=== PATIENT | male | born 1970 | race Caucasian/White ===

== ENCOUNTER 2017-06-19 07:32 | Day surgery (SDC) | payer OTHER ==
[~2017-06-19] VITALS: Ht 188 cm; Wt 94.0 kg
[2017-06-19] VITALS (13 sets, daily range): BP systolic 11–119; BP diastolic 69–88; PULSE 61–73; TEMP 98.8
[2017-06-19 07:53] LABS: HEMATOCRIT 47.7 % (42.0-52.0); HEMOGLOBIN 15.9 g/dl (13.5-18.0); MEAN CELL VOLUME 88 fl (80.0-100.0); MEAN CORPUSCULAR HEMOGLOBIN 29 pg (27.0-31.0); MEAN CORPUSCULAR HGB CONC 33 g/dl (33.0-37.0); PLATELET COUNT 270 K/mm3 (130-400); RED BLOOD COUNT 5.45 M/mm3 (4.20-5.60); WHITE BLOOD COUNT 4.6 K/mm3 (4.8-10.8)
[2017-06-19 08:02] LABS: CALCIUM 9.3 mg/dL (8.4-10.2); CREATININE, serum 1.06 mg/dL (0.66-1.25); POTASSIUM 4.4 mmol/L (3.4-5.0)
[2017-06-19 08:29] LABS: INR 1.1 (0.8-3.0); PROTHROMBIN TIME 12.3 SECONDS (9.7-12.8)
[2017-06-19] MEDS ORDERED: TOPROL XL 25MG25 MG PO (08:32)
[2017-06-19] MEDS ORDERED: ASPIRIN 81M81 MG/TA2 PO (08:33)
[2017-06-19] MEDS ORDERED: ADVIL200 MG PO (08:34)
[2017-06-19] MEDS ORDERED: LIPITOR20 MG PO (10:39)
[2017-06-19] MEDS ORDERED: LOVAZA1 GM PO (10:39)
[2017-06-19] MEDS ORDERED: TIAZAC120 MG PO (10:40)
[2017-06-19] MEDS ORDERED: BYSTOLIC5 MG PO (11:50)
== END 2017-06-19 14:54 | disposition home or self-care (01) ==
LOC: COL.CAR 07:32
PROVIDERS: Internal Medicine Cardiovascular Disease
DX: R94.39 Abnormal result of other cardiovascular function study (principal); R07.9 Chest pain, unspecified; J45.909 Unspecified asthma, uncomplicated; Z82.49 Family history of ischemic heart disease and other diseases of the circulatory system; Z80.0 Family history of malignant neoplasm of digestive organs; Z82.5 Family history of asthma and other chronic lower respiratory diseases; Z83.3 Family history of diabetes mellitus; Z82.3 Family history of stroke
CPT/HCPCS: J1644; J2250; J3010